=== PATIENT | male | born 1985 | race Caucasian/White ===

== ENCOUNTER 2017-02-06 15:14 | Emergency (ER) | payer SELFPAY ==
[~2017-02-06] VITALS: Ht 188 cm; Wt 94.9 kg
[~2017-02-06 15:14] MED LIST: BACTRIM,SEPT1 TABLET PO; DEPAKOT PO; KEFLEX500 MG PO; MOTRIN800 MG PO; SEROQ PO; TORADOL10 MG PO; ULTRAM50 MG PO; VALIUM5 MG PO; VISTARIL PO; WELLBUTRIN75 MG PO
[2017-02-06] MEDS ORDERED: NAPROXEN500 MG PO (16:37)
[2017-02-06] MEDS ORDERED: PERCOCET 5/31 TABLET PO (16:45)
[2017-02-06 16:51] VITALS: BP 115/77
== END 2017-02-06 16:53 | disposition home or self-care (01) ==
LOC: EME 15:14
DX: S02.2XXA Fracture of nasal bones, initial encounter for closed fracture (principal); M54.5 Low back pain; S00.83XA Contusion of other part of head, initial encounter; M25.512 Pain in left shoulder; Y04.0XXA Assault by unarmed brawl or fight, initial encounter
CPT/HCPCS: 70450; 70486; 72100; 73000; 99281; 99284